=== PATIENT | female | born 1980 | race African-American/Black ===

== ENCOUNTER 2021-03-03 11:13 | Emergency (ER) | payer OTHER ==
[2021-03-03 11:29] VITALS: BP 104/76; PULSE 94; TEMP 98.6; BMI 32.3
== END 2021-03-03 15:36 | disposition home or self-care (01) ==
LOC: JERFT 11:13
DX: N63.20 Unspecified lump in the left breast, unspecified quadrant (principal)
CPT/HCPCS: 76604; 99284-25